=== PATIENT | male | born 1965 | race Hispanic/Latino ===

== ENCOUNTER 2018-10-18 09:17 | Emergency (ER) | payer OTHER ==
[2018-10-18 10:08] LABS: #Eosinphils 0.5 thou/uL (0.0-0.7); #Lymphocytes 1.5 thou/uL (1.20-3.40); #Monocytes 0.5 thou/uL (0.11-0.59); #Neutrophils 6.1 thou/uL (1.40-6.50); %Basophils 0.4 % (0.0-1.0); %Eosinophils 5.6 % (0.0-10.0); %Monocytes 6.1 % (0.0-10.0); %Neutrophils 70.9 % (42.0-75.0); Hemoglobin 12.6 g/dL (14.0-18.0); Mean Corpuscular HGB CONC 34.1 g/dL (32.0-36.0); Mean Corpuscular Hemoglobin 28.5 pg (27.0-31.0); Mean Corpuscular Volume 83.5 fL (78.0-98.0); Mean Platelet Volume 7.4 fL (7.4-10.4); Platelet Count 284 thou/uL (130-400); RBC Distribution Width 14.8 % (11.5-14.5); Red Blood Cell (RBC) Count 4.43 mill/uL (4.70-6.10); White Blood Cell (WBC) Count 8.6 thou/uL (4.8-10.8)
[2018-10-18] MEDS ORDERED: Nitroglycerin 2% Ointment 1 INCH/1 GM Packet ONE ×2 (10:12→11:15)
--- NOTE | 2018-10-18 10:19 | RAD ---
Exam: Chest one view HISTORY:Chest pain Comparison: 10/05/2018 FINDINGS: Cardiac silhouette: Normal stable sternotomy wires Pulmonary vessels: Normal Costophrenic angles: Clear LUNGS: No masses or consolidation. Pneumothorax: None Osseous abnormalities: None IMPRESSION: No acute cardiopulmonary process.
[2018-10-18 10:30] LABS: ALT (SGPT) 28 U/L (8-55); AST (SGOT) 26 U/L (5-34); Albumin 4.1 g/dL (3.5-5.0); Alkaline Phosphatase 121 U/L (40-150); Anion Gap 13 mmol/L (10-20); BUN (Urea Nitrogen) 13 mg/dL (8.4-25.7); Bilirubin, Total 0.4 mg/dL (0.2-1.2); Calc. Creatinine Clearance 0 mL/min (70-130); Calcium 9.5 mg/dL (7.8-10.44); Carbon Dioxide 25 mmol/L (22-29); Chloride 105 mmol/L (98-107); Estimated GFR-MDRD Greater than 90; Globulin 2.7 g/dL (2.4-3.5); Glucose 146 mg/dL (70-105); Lipase 43 U/L (8-78); Potassium 4.1 mmol/L (3.5-5.1); Protein, Total 6.8 g/dL (6.0-8.3); Sodium 139 mmol/L (136-145)
--- NOTE | 2018-10-18 11:07 | CT ---
Exam: CT angiogram of the chest HISTORY: Chest pain COMPARISON: None TECHNIQUE: CT angiogram of the chest is performed in the axial plane. Three-dimensional reformatted i mages are submitted for interpretation FINDINGS: Mediastinum: Stranding of the anterior mediastinal fat likely representing postoperative changes due to recent sternotomy HEART: Normal size. Moderate pericardial fluid. Aorta: No aneurysm or dissection. There are coronary artery calcifications. Upper solid abdominal viscera: No abnormality enhancement. Trachea and central bronchi: Patent Pleural spaces: No effusion Lung parenchyma: Linear opacity in the left lower lobe likely representing scar. Dependent atelectati c changes are noted in the lung bases. Pneumothorax: None Osseous structures: No lytic or blastic lesions Pulmonary arteries: Adequate contrast opacification pulmonary arterial system to the level of segment al arteries. No filling defect to suggest pulmonary embolism IMPRESSION: 1. Findings compatible with recent open heart surgery. Stranding of the anterior mediastinum is presu med to be postoperative. 2. Moderate pericardial fluid. 3. No evidence of pulmonary arterial embolism to the level of the segmental arteries.
[2018-10-18] MEDS ORDERED: ISOVUE-370 76%-LOCM 1 ML ONE (13:43)
[2018-10-18] MEDS ORDERED: Acetaminophen 500 MG TAB ONE (14:00)
== END 2018-10-18 15:17 | disposition short-term general hospital (02) ==
LOC: ERS 09:17
DX: R07.9 Chest pain, unspecified (principal); E11.9 Type 2 diabetes mellitus without complications; I10 Essential (primary) hypertension; Z79.899 Other long term (current) drug therapy; Z79.82 Long term (current) use of aspirin; Z79.84 Long term (current) use of oral hypoglycemic drugs
CPT/HCPCS: 36415; 71045; 71275; 80053; 83690; 84484; 85025; 93005; 96360; 96361; Q9966